=== PATIENT | female | born 1985 | race African-American/Black ===

== ENCOUNTER 2016-11-17 07:31 | Emergency (ER) | payer MEDICAID ==
[2016-11-17 08:17] VITALS: BP 139/85; PULSE 81; TEMP 98.3; BMI 31.1
[2016-11-17] MEDS ORDERED: AZITHROMYCIN 250 MG TAB PO STA (08:24)
--- NOTE | 2016-11-17 08:26 | EDPRACDOC ---
- General Information Chief Complaint: Sore Throat Stated Complaint: UPPER RIB CAGE PAIN/ COUGH Time Seen by Provider: 11/17/16 08:20 Information Source: Patient Home Medications: Home Medications Ketorolac Tromethamine [Toradol] 10 mg PO Q6H PRN #20 tab 10/18/16 Pantoprazole Sodium [Protonix] 40 mg PO DAILY #30 tab 10/18/16 Azithromycin 250 mg PO DAILY #4 tablet 11/17/16 Allergies/Adverse Reactions: Allergies Allergy/AdvReac Type Severity Reaction Status Date / Time Penicillins Allergy Rash-Locali Verified 11/17/16 08:15 zed - History of Present Illness Onset: "awhile" HPI: PT PRESENTS WITH OVER A WEEK OF FACIAL PRESSURE, DRAINAGE AND SORE THROAT. Current Symptoms: Reports: Cough, Nasal Symptoms. Denies: Fever, Vomiting Cough: Reports: Green Rhinorrhea: Reports: Green Fever Severity/Quality: Reports: no fever Associated Signs & Symptoms:: Reports: Cough, Nasal Symptoms. Denies: Vomiting - Treatment Prior to ED Arrival Reported Medications/Treatment [employer] Treated With Medication [employer] YES Medications [employer] (Medication/ tylenol cough and cold Dose/Time) ED Past Medical History - History Reviewed Yes Nurses notes reviewed and agree except as marked No Past Medical History: Yes Patient has no past medical history - Patient Medical History Psychological History: Denies: Depression Systemic History: Denies: Anemia, Lupus Surgical History: Denies: Hysterectomy - Family Medical History Reports: Hypertension, Diabetes, Cancer, Cardiac Disorders. Denies: Stroke - Social Medical History Smoking Status: Never smoker Lives In: Home EDM Review of Systems - Review of Systems ROS Negative Except as Marked: Yes All systems reviewed and were negative except as marked Constitutional: negative: Fever Throat: Pain, Hoarseness Nose: Congestion, Discharge Respiratory: Cough. negative: Wheezing - Physical Exam Constitutional: Alert Oriented to: Time, Person, Place Last recorded Vital Signs: Last Vital Signs Temp 98.3 F 11/17/16 07:59 Pulse 81 11/17/16 07:59 Resp 18 11/17/16 07:59 BP 139/85 11/17/16 07:59 Pulse Ox 96 11/17/16 07:59 Oxygen Pulse Oxygen Saturation 96 O2 Device Room Air Oxygen Flow Rate Fraction of Inspired Oxygen ( FIO2) - HEENT Head: negative: Deformity, Laceration Eye Exam: negative: Conjunctival Injection, Pale Conjunctiva Oropharynx: negative: Membranes Dry Nose: Congestion, Discharge, Tender (MAXILLARY SINUSES) - Integumentary Skin: Warm, Dry. negative: Rash - Neurologic Memory Impaired: Normal Motor Function: Normal Mood Description: Appropriate Thought: Coherent, Delusions Perception: Normal Decision Time to Discharge: 08:26 - Departure Yes I personally saw and evaluated the patient. Disposition: Home Condition: Stable Final Diagnosis: Sinusitis Qualifiers: Sinusitis location: maxillary Chronicity: acute Recurrence: non-recurrent Qualified Code(s): J01.00 - Acute maxillary sinusitis, unspecified Instructions: Sinusitis (ED) Education/Counseling Given To: Patient Education/Counseling Given Regarding: Diagnosis, Treatment, Prognosis, Follow Up Referrals: Feli Mayo MD [Primary Care Provider] - Call for Appointment Prescriptions: Azithromycin 250 mg PO DAILY #4 tablet
== END 2016-11-17 09:00 | disposition home or self-care (01) ==
LOC: ED 07:31
DX: J01.00 Acute maxillary sinusitis, unspecified (principal)
CPT/HCPCS: 99282; J3490